=== PATIENT | male | born 1935 | race Caucasian/White ===

== ENCOUNTER 2016-09-24 14:34 | Emergency (ER) | payer OTHER ==
[2016-09-24] MEDS ORDERED: ONDANSETRON 4 MG/2 ML VIAL IVP ONE (16:12)
[2016-09-24] MEDS ORDERED: HYDROmorphONE/DILAUDID 1 MG/ML SYR IVP ONE ×2 (16:12→17:55)
--- NOTE | 2016-09-24 16:13 | EDPHY ---
H & P Time Seen by Provider: 09/24/16 16:05 HPI/ROS: CHIEF COMPLAINT: Left hip pain HISTORY OF PRESENT ILLNESS: patient had a left hip fracture with surgical repair in [facility] in November of last year. He fell in May and since then has had left hip pain and difficulty walking. In fact according to the patient and his daughter he really can't stand or walk for at least the last couple of months. No weakness or numbness in the left foot. Pain is moderate. Much worse with walking or standing. Radiates into the left proximal thigh. Not associated with fever or new trauma since May. REVIEW OF SYSTEMS: Eye: no change in vision ENT: no sore throat Cardiac: no chest pain or syncope Pulmonary: no cough or SOB Abdomen: no vomiting, diarrhea, abdominal pain Musculoskeletal: no back pain Skin: no rash Neuro: no headache Constitutional: no fever : no urinary symptoms A comprehensive 10 point review of systems is otherwise negative aside from elements mentioned in the history of present illness. PAST MEDICAL HISTORY: Negative Social history: Speaks Maltese, history and physical performed interpreted physically in the room. General Appearance: Alert and conversant, cooperative. Eyes: No scleral icterus. ENT, Mouth: Normal mucous membranes. Respiratory: Normal respiratory effort, breath sounds equal, lungs are clear to auscultation. Cardiovascular: Regular rate and rhythm. Gastrointestinal: Abdomen is soft and non tender. Neurological: Alert ,answers questions appropriately per [employer]. Face symmetric, normal movement and sensation in all extremities. Skin: Warm and dry, no rashes. Musculoskeletal: Patient has left hip flexion contracture both at the hip and at the knee. Tender to palpation over the proximal femur. Normal motor sensory and capillary refill in the left foot. Psychiatric: Not agitated. Emergency Department course/MDM: Results discussed with the patient and daughter at 5:15 p.m. with [employer]. X-ray reviewed with Dr. 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 Discussed with patient and daughter; chapin Tejeda and Dr. Chan at [phone] needs transfer to specialty ortho center. Dr. Chan reviewed films in the OR. Discussed with [place] at [phone], Dr. Keene accepts in transfer to ED at [place]. Dr. Cali [phone] accepts in transfer. Discussed with patient and daughter reason for transfer for specialty orthopedic care, revision of failed hip prosthesis, not currently available at [place]. Reason for ambulance transport is not ambulatory. Smoking Status: Never smoked Constitutional: Initial Vital Signs Temperature (C) 36.3 C 09/24/16 14:43 Heart Rate 96 09/24/16 14:43 Respiratory Rate 18 09/24/16 14:43 Blood Pressure 108/63 09/24/16 14:43 O2 Sat (%) 98 09/24/16 14:43 O2 Delivery Mode Room Air Allergies/Adverse Reactions: No Known Allergies Allergy (Unverified 09/24/16 14:48) Home Medications: Medication Instructions Recorded Docusate Sodium [Colace 100 MG (*)] 100 mg PO BID PRN 09/24/16 Methimazole [Tapazole 5MG (*)] 5 mg PO DAILY 09/24/16 Multivitamins [Multivitamin (*)] 1 each PO DAILY 09/24/16 traMADol [Ultram 50 mg (*)] 50 mg PO TID PRN 09/24/16 Medical Decision Making - Diagnostics Imaging Results: Imaging Impressions Pelvis X-Ray 09/24/16 16:11 Impression: 1. 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 2. 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 Femur X-Ray 09/24/16 16:31 Impression: 1. Intact femoral shaft. 2. Suspect loosening of the left hip arthroplasty at the bone cement interface. 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 Imaging: I viewed and interpreted images myself Differential Diagnosis: Differential considered including but not limited to hip contusion, hip fracture , pelvis fracture, dislocation, Consult/Admit Bed Type: [place] [id number] - Data Points Laboratory Results: Laboratory Results 09/24/16 16:30 09/24/16 16:30 09/24/16 09/24/16 16:30 16:30 WBC 9.83 10^3/uL H 10^3/uL (3.80-9.50) RBC 3.52 10^6/uL L 10^6/uL (4.40-6.38) Hgb 10.4 g/dL L g/dL (13.7-17.5) Hct 32.0 % L % (40.0-51.0) MCV 90.9 fL fL (81.5-99.8) MCH 29.5 pg pg (27.9-34.1) MCHC 32.5 g/dL g/dL (32.4-36.7) RDW 16.6 % H % (11.5-15.2) Plt Count 443 10^3/uL H 10^3/uL (150-400) MPV 10.5 fL fL (8.7-11.7) Neut % (Auto) 66.2 % % (39.3-74.2) Lymph % (Auto) 22.9 % % (15.0-45.0) [place] % (Auto) 8.4 % % (4.5-13.0) Eos % (Auto) 1.5 % % (0.6-7.6) Baso % (Auto) 0.5 % % (0.3-1.7) Nucleat RBC Rel Count 0.0 % % (0.0-0.2) Absolute Neuts (auto) 6.50 10^3/uL 10^3/uL (1.70-6.50) Absolute Lymphs (auto) 2.25 10^3/uL 10^3/uL (1.00-3.00) Absolute Monos (auto) 0.83 10^3/uL H 10^3/uL (0.30-0.80) Absolute Eos (auto) 0.15 10^3/uL 10^3/uL (0.03-0.40) Absolute Basos (auto) 0.05 10^3/uL 10^3/uL (0.02-0.10) Absolute Nucleated RBC 0.00 10^3/uL 10^3/uL (0-0.01) Immature Gran % 0.5 % % (0.0-1.1) Immature Gran # 0.05 10^3/uL 10^3/uL (0.00-0.10) Sodium 136 mEq/L mEq/L (134-144) Potassium 6.2 mEq/L H mEq/L (3.5-5.2) Chloride 103 mEq/L mEq/L (97-110) Carbon Dioxide 24 mEq/l mEq/l (22-31) Anion Gap 9 mEq/L mEq/L (8-16) BUN 25 mg/dL H mg/dL (7-23) Creatinine 0.8 mg/dL mg/dL (0.7-1.3) Estimated GFR > 60 Glucose 97 mg/dL mg/dL (70-100) Calcium 8.8 mg/dL mg/dL (8.5-10.4) Specimen Hemolysis 181 Medications Given: Discontinued Medications Hydromorphone HCl (Dilaudid) 0.5 mg IVP EDNOW ONE Stop: 09/24/16 16:13 Last Admin: 09/24/16 16:30 Dose: 0.5 mg Hydromorphone HCl (Dilaudid) 0.5 mg IVP EDNOW ONE Stop: 09/24/16 17:56 Last Admin: 09/24/16 18:00 Dose: 0.5 mg Ondansetron HCl (Zofran) 4 mg IVP EDNOW ONE Stop: 09/24/16 16:13 Last Admin: 09/24/16 16:30 Dose: 4 mg Departure - Departure Disposition: [facility] Clinical Impression: Prosthetic hip implant failure Qualifiers: Encounter type: initial encounter Qualified Code(s): T84.018A - Broken internal joint prosthesis, other site, initial encounter Condition: Good Referrals: Joann Fajardo PA [Primary Care Provider] - As per Instructions
[2016-09-24 16:44] LABS: % IMMATURE GRANULYOCYTES 0.5 % (0.0-1.1); ABSOLUTE IMMATURE GRANULOCYTES 0.05 10^3/uL (0.00-0.10); ADD DIFF? NO; ADD MORPH? NO; ADD SCAN? NO; ATYPICAL LYMPHOCYTE FLAG 0 (0-99); FRAGMENT RBC FLAG 50 (0-99); HEMOGLOBIN 10.4 g/dL (13.7-17.5); LEFT SHIFT FLG 0 (0-99); LIPEMIA HEMOLYSIS FLAG 80 (0-99); MEAN CELL HEMOGLOBIN 29.5 pg (27.9-34.1); MEAN CELL HEMOGLOBIN CONCENTR. 32.5 g/dL (32.4-36.7); MEAN CELL VOLUME 90.9 fL (81.5-99.8); MEAN PLATELET VOLUME 10.5 fL (8.7-11.7); PLATELET CLUMPS FLAG 20 (0-99); PLATELET COUNT 443 10^3/uL (150-400); RED BLOOD CELL COUNT 3.52 10^6/uL (4.40-6.38); RED CELL DISTRIBUTION WIDTH 16.6 % (11.5-15.2)
[2016-09-24 16:55] LABS: ANION GAP 9 mEq/L (8-16); CALCIUM 8.8 mg/dL (8.5-10.4); CARBON DIOXIDE 24 mEq/l (22-31); CHLORIDE 103 mEq/L (97-110); CREATININE 0.8 mg/dL (0.7-1.3); GLOMERULAR FILTRATION RATE > 60; GLUCOSE 97 mg/dL (70-100); POTASSIUM 6.2 mEq/L (3.5-5.2); SODIUM 136 mEq/L (134-144); SPECIMEN HEMOLYSIS 181
[2016-09-24 18:46] VITALS: BP 105/55; PULSE 76; RESP 20; TEMP 98.2; O2SAT 97
== END 2016-09-24 18:50 | disposition short-term general hospital (02) ==
DX: T84.011A Broken internal left hip prosthesis, initial encounter (principal); Y82.8 Other medical devices associated with adverse incidents
CPT/HCPCS: 96374; J1170; J2405

== ENCOUNTER 2016-09-26 12:39 | Emergency (ER) | payer OTHER ==
--- NOTE | 2016-09-26 13:08 | EDPHY ---
H & P Stated Complaint: fell out of bed last night/l hip pain(seen recently for hip prob here and u Time Seen by Provider: 09/26/16 13:01 HPI/ROS: CHIEF COMPLAINT: Left hip pain after rolling out of bed HISTORY OF PRESENT ILLNESS: 80-year-old male history of left hip fracture with surgical repair in [facility] in November 2015. He fell in May and since has had left hip pain difficulty walking. Per patient and daughter he can ' t stand or walk for at least the past few months since falling in May. He was seen in the emergency department a few days ago for complaints of ongoing left hip pain and subsequently transferred to [facility] at which point he was discharged with plan to follow up with outpatient orthopedics an outpatient PTD. Today, He arrives via private vehicle with family members who carried him to the car. They states that he rolled out of bed onto his left hip this morning. This was not a syncopal episode, this was a mechanical incident. He is unable to bear weight. No head injury. No nausea or vomiting. No altered mentation. He has reproducible pain with movement of the left lower extremity. REVIEW OF SYSTEMS: A ten point review of systems was performed and is negative with the exception of the items mentioned in the HPI PAST MEDICAL & SURGICAL HISTORY: left hip arthroplasty November 2015 in [place] SOCIAL HISTORY: lives with family PHYSICAL EXAM (Prior to examination, patient consented to physical exam, hands were washed and my usual and customary physical exam procedures followed) 1) GENERAL: Well-developed, well-nourished, alert and oriented. Appears to be in no acute distress. 2) HEAD: Normocephalic, atraumatic 3) HEENT: Pupils equal, round, reactive to light bilaterally. Sclera anicteric. Nasopharynx, oropharynx, clear, no lesions. Ears bilaterally with normal tympanic membranes. No raccoon eyes no Goncalves sign. 4) NECK: Full range of motion, no meningeal signs. 5) LUNGS: Clear auscultation bilaterally, no wheezes, no rhonchi, no retractions. 6) HEART: Regular rate and rhythm, no murmur, no heave, no gallop. 7) ABDOMEN: No guarding, no rebound, no focal tenderness, negative McBurney's, negative Lozano's, negative Rovsing's, negative peritoneal sign, 8) MUSCULOSKELETAL: Left hip flexion contracture both at the hip and at the knee. The patient is tender to palpation left greater trochanteric region. unable call to determine leg length or rotation as patient is keeping his left thigh flex unwilling to move secondary to pain. Distal DP PT pulses present and brisk with normal color normal temperature. Intact skin. 9) BACK: No CVA tenderness. 10) SKIN: No rash, no petechiae. 11) Psychiatric: Patient is oriented X 3, there is no agitation. DIFFERENTIAL DIAGNOSIS: in no particular include but limited to fracture, dislocation, sprain - Personal History Current Tetanus/Diphtheria Vaccine: Unsure - Medical/Surgical History Hx Asthma: No Hx Chronic Respiratory Disease: No Hx Diabetes: No Hx Cardiac Disease: Yes Hx Renal Disease: No Hx Cirrhosis: No Hx Alcoholism: No Hx HIV/AIDS: No Hx Splenectomy or Spleen Trauma: No Other PMH: PMH: "cardiac problems causing feet swelling". PSH: hip/knee surg 2016 - Social History Smoking Status: Never smoked Constitutional: Initial Vital Signs Temperature (C) 37 C 09/26/16 12:46 Heart Rate 124 H 09/26/16 12:46 Respiratory Rate 22 H 09/26/16 12:46 Blood Pressure 99/80 L 09/26/16 12:46 O2 Sat (%) 92 09/26/16 12:46 O2 Delivery Mode Room Air Allergies/Adverse Reactions: No Known Allergies Allergy (Verified 09/26/16 12:40) Home Medications: Medication Instructions Recorded Docusate Sodium [Colace 100 MG (*)] 100 mg PO BID PRN 09/24/16 Methimazole [Tapazole 5MG (*)] 5 mg PO DAILY 09/24/16 Multivitamins [Multivitamin (*)] 1 each PO DAILY 09/24/16 traMADol [Ultram 50 mg (*)] 50 mg PO TID PRN 09/24/16 Medical Decision Making - Diagnostics Imaging Results: Imaging Impressions Hip X-Ray 09/26/16 13:02 Impression: There is no acute abnormality, or substantial change from 2016. Please see the above comments. Case was discussed with Rosendo Brady PA-C at 2:30 PM on 09/26/2016. Images reviewed by myself ED Course/Re-evaluation: This patient was re-evaluated with serial exams and the case discussed with secondary supervising physician Dr. Narinder Alex. I had a lengthy discussion with the family, the patient and the generation technologist. We have discussed options. He has been discharged from [facility] yesterday (Tuesday) and was recommend that he call the orthopedic clinic tomorrow to set up an outpatient appointment and to arrange physical therapy. There is no evidence of acute fracture or dislocation on x-ray interpreted by radiologist. I offered descended patient back to [facility] although per the family there were no plans for emergent surgery. They declined thisI offered admission to the hospital for PT OT, pain control and possible transfer to rehabilitation facility however they declined this. they declined this. They state they feel comfortable managing his pain at home, they feel comfortable taking care of him and setting up follow-up appointments. They have sufficient supply of analgesia prescribed [facility] and they have a list of next steps for patient. - Data Points Laboratory Results: Laboratory Results 09/26/16 13:04 09/26/16 13:04 09/26/16 09/26/16 09/26/16 13:04 13:04 13:04 WBC 9.38 10^3/uL 10^3/uL (3.80-9.50) RBC 3.80 10^6/uL L 10^6/uL (4.40-6.38) Hgb 11.3 g/dL L g/dL (13.7-17.5) Hct 34.2 % L % (40.0-51.0) MCV 90.0 fL fL (81.5-99.8) MCH 29.7 pg pg (27.9-34.1) MCHC 33.0 g/dL g/dL (32.4-36.7) RDW 16.1 % H % (11.5-15.2) Plt Count 440 10^3/uL H 10^3/uL (150-400) MPV 9.7 fL fL (8.7-11.7) Neut % (Auto) 75.4 % H % (39.3-74.2) Lymph % (Auto) 15.0 % % (15.0-45.0) [place] % (Auto) 7.9 % % (4.5-13.0) Eos % (Auto) 0.9 % % (0.6-7.6) Baso % (Auto) 0.4 % % (0.3-1.7) Nucleat RBC Rel Count 0.0 % % (0.0-0.2) Absolute Neuts (auto) 7.07 10^3/uL H 10^3/uL (1.70-6.50) Absolute Lymphs (auto) 1.41 10^3/uL 10^3/uL (1.00-3.00) Absolute Monos (auto) 0.74 10^3/uL 10^3/uL (0.30-0.80) Absolute Eos (auto) 0.08 10^3/uL 10^3/uL (0.03-0.40) Absolute Basos (auto) 0.04 10^3/uL 10^3/uL (0.02-0.10) Absolute Nucleated RBC 0.00 10^3/uL 10^3/uL (0-0.01) Immature Gran % 0.4 % % (0.0-1.1) Immature Gran # 0.04 10^3/uL 10^3/uL (0.00-0.10) PT 14.0 SEC SEC (12.0-15.0) INR 1.09 (0.83-1.16) APTT 33.3 SEC SEC (23.0-38.0) Sodium 136 mEq/L mEq/L (134-144) Potassium 4.4 mEq/L mEq/L (3.5-5.2) Chloride 100 mEq/L mEq/L (97-110) Carbon Dioxide 25 mEq/l mEq/l (22-31) Anion Gap 11 mEq/L mEq/L (8-16) BUN 18 mg/dL mg/dL (7-23) Creatinine 0.8 mg/dL mg/dL (0.7-1.3) Estimated GFR > 60 Glucose 115 mg/dL H mg/dL (70-100) Calcium 9.2 mg/dL mg/dL (8.5-10.4) Medications Given: Discontinued Medications Ketorolac Tromethamine (Toradol) 15 mg IVP EDNOW ONE Stop: 09/26/16 13:16 Last Admin: 05/14/17 13:24 Dose: 15 mg Morphine Sulfate (Morphine) 4 mg IVP EDNOW ONE Stop: 09/26/16 13:06 Last Admin: 09/26/16 13:23 Dose: 4 mg Departure - Departure Disposition: Home, Routine, Self-Care Clinical Impression: Prosthetic hip implant failure Qualifiers: Encounter type: subsequent encounter Qualified Code(s): T84.018D - Broken internal joint prosthesis, other site, subsequent encounter; Z96.649 - Presence of unspecified artificial hip joint Condition: Good Instructions: Hip Fracture (ED) Additional Instructions: We have offered admission which you have declined. If you feel you are unable to take care of your father return to the ER or go to [facility] Emergency Department. Call [facility] Orthopedic Clinic tomorrow ( Tuesday) to set up an appointment. Take your pain medication as directed by the [facility] Orthopedic doctors. Referrals: [facility] [Other] - As per Instructions
[2016-09-26 13:12] LABS: % IMMATURE GRANULYOCYTES 0.4 % (0.0-1.1); ABSOLUTE IMMATURE GRANULOCYTES 0.04 10^3/uL (0.00-0.10); ADD DIFF? NO; ADD MORPH? NO; ADD SCAN? NO; ATYPICAL LYMPHOCYTE FLAG 0 (0-99); FRAGMENT RBC FLAG 0 (0-99); HEMATOCRIT 34.2 % (40.0-51.0); HEMOGLOBIN 11.3 g/dL (13.7-17.5); LEFT SHIFT FLG 0 (0-99); LIPEMIA HEMOLYSIS FLAG 80 (0-99); MEAN CELL HEMOGLOBIN 29.7 pg (27.9-34.1); MEAN PLATELET VOLUME 9.7 fL (8.7-11.7); PLATELET CLUMPS FLAG 0 (0-99); PLATELET COUNT 440 10^3/uL (150-400); RED CELL DISTRIBUTION WIDTH 16.1 % (11.5-15.2)
[2016-09-26] MEDS ORDERED: KETOROLAC 30 MG/1 ML SDV IVP ONE (13:15)
[2016-09-26] MEDS ORDERED: KETOROLAC 15 MG/1 ML SDV ONE (13:15)
[2016-09-26 13:24] LABS: INR 1.09 (0.83-1.16)
[2016-09-26 13:25] LABS: ANION GAP 11 mEq/L (8-16); APTT 33.3 SEC (23.0-38.0); CALCIUM 9.2 mg/dL (8.5-10.4); CARBON DIOXIDE 25 mEq/l (22-31); CHLORIDE 100 mEq/L (97-110); CREATININE 0.8 mg/dL (0.7-1.3); GLOMERULAR FILTRATION RATE > 60; GLUCOSE 115 mg/dL (70-100); POTASSIUM 4.4 mEq/L (3.5-5.2); SODIUM 136 mEq/L (134-144)
[2016-09-26 15:25] VITALS: BP 120/77; PULSE 70; RESP 14; TEMP 98.4; O2SAT 94
== END 2016-09-26 15:24 | disposition home or self-care (01) ==
DX: T84.011D Broken internal left hip prosthesis, subsequent encounter (principal); W06.XXXD Fall from bed, subsequent encounter; Y79.2 Prosthetic and other implants, materials and accessory orthopedic devices associated with adverse incidents
CPT/HCPCS: 96374; J1885

== ENCOUNTER 2017-08-06 15:11 | Observation (INO) | payer SELFPAY ==
--- NOTE | 2017-08-06 15:31 | CPEKG ---
Heart Rate: 84 RR Interval: 714 P-R Interval: 156 QRSD Interval: 96 QT Interval: 376 QTC Interval: 445 P [place]: 39 QRS [place]: -13 T Wave [place]: 45 EKG Severity - OTHERWISE NORMAL ECG - EKG Impression: SINUS RHYTHM EKG Impression: LOW VOLTAGE IN FRONTAL LEADS Electronically Signed By: Jonathan Rodriguez 06-Aug-2017 15:41:52
[2017-08-06] MEDS ORDERED: ASPIRIN 81 MG CHEWABLE TAB PO ONE (15:37)
[2017-08-06] MEDS ORDERED: ASPIRIN 81 MG CHEWABLE TAB ONE (15:37)
[2017-08-06] MEDS ORDERED: NS 500 ML IV ONE (15:37)
--- NOTE | 2017-08-06 15:40 | EDPHY ---
H & P Stated Complaint: left chestwall pain. with inspiration and palpation, denies any trauma Time Seen by Provider: 08/06/17 15:26 HPI/ROS: CHIEF COMPLAINT: Chest pain HISTORY OF PRESENT ILLNESS: The patient is an 81-year-old man from [place] who comes to the emergency department with his family complaining of left chest pain that is tender to palpation. He states that he woke up with it at 5 o' clock this morning. He has had pain ever since. He denies any trauma. He denies fevers or recent illness. He states that he felt very well yesterday. He states that he had a heart attack several decades ago in [place]. Family states that he did not have any interventions at the time but now has a enlarged heart. They are not sure if he has been diagnosed with heart failure. They have been told that he has a weak heart. He he denies shortness of breath but does have pain with deep inspiration. No leg pain or swelling. He denies any pulmonary comorbidities. REVIEW OF SYSTEMS: Constitutional: denies: chills, fever, recent illness, recent injury EENTM: denies: blurred vision, double vision, nose congestion Respiratory: denies: cough, shortness of breath Cardiac: see HPI Gastrointestinal/Abdominal: denies: abdominal pain, diarrhea, nausea, vomiting, blood streaked stools Genitourinary: denies: dysuria, frequency, hematuria, pain Musculoskeletal: denies: joint pain, muscle pain Skin: denies: lesions, rash, jaundice, bruising Neurological: denies: headache, numbness, paresthesia, tingling, dizziness, weakness Hematologic/Lymphatic: denies: blood clots, easy bleeding, easy bruising Immunologic/allergic: denies: HIV/AIDS, transplant EXAM: GENERAL: Well-appearing, well-nourished and in no acute distress. HEAD: Atraumatic, normocephalic. EYES: Pupils equal round and reactive to light, extraocular movements intact, sclera anicteric, conjunctiva are normal. ENT: TMs normal, nares patent, oropharynx clear without exudates. Moist mucous membranes. NECK: Normal range of motion, supple without lymphadenopathy or JVD. LUNGS: Breath sounds clear to auscultation bilaterally and equal. No wheezes rales or rhonchi. HEART: Tender to palpation to left lateral rib region. Regular rate and rhythm without murmurs, rubs or gallops. ABDOMEN: Soft, nontender, normoactive bowel sounds. No guarding, no rebound. No masses appreciated. BACK: No CVA tenderness, no spinal tenderness, step-offs or deformities EXTREMITIES: Normal range of motion, no pitting or edema. No clubbing or cyanosis. NEUROLOGICAL: Cranial nerves II through XII grossly intact. Normal speech, normal gait. 5/5 strength, normal movement in all extremities, normal sensation PSYCH: Normal mood, normal affect. SKIN: Warm, dry, normal turgor, no visible rashes or lesions. Source: Patient Exam Limitations: No limitations - Personal History Current Tetanus Diphtheria and Acellular Pertussis (TDAP): Unsure - Medical/Surgical History Hx Asthma: No Hx Chronic Respiratory Disease: No Hx Diabetes: No Hx Cardiac Disease: Yes Hx Renal Disease: No Hx Cirrhosis: No Hx Alcoholism: No Hx HIV/AIDS: No Hx Splenectomy or Spleen Trauma: No Other PMH: PMH: "cardiac problems causing feet swelling". PSH: hip/knee surg 2016 - Family History Significant Family History: No pertinent family hx - Social History Smoking Status: Never smoked Alcohol Use: Sober Drug Use: None Constitutional: Initial Vital Signs Temperature (C) 36.9 C 08/06/17 15:17 Heart Rate 95 08/06/17 15:17 Respiratory Rate 16 08/06/17 15:17 Blood Pressure 123/70 H 08/06/17 15:17 O2 Sat (%) 98 08/06/17 15:17 O2 Delivery Mode Room Air Allergies/Adverse Reactions: No Known Allergies Allergy (Verified 09/26/16 12:40) Home Medications: Medication Instructions Recorded Methimazole [Tapazole 5MG (*)] 2.5 mg PO Q2D 09/24/16 Multivitamins [Multivitamin (*)] 1 tab PO DAILY 09/24/16 Calcium Carb W/Vit D [Calcium Carb 1,000 mg PO HS 08/06/17 W/Vit D 500/200 (*)] Finasteride [Proscar 5 MG (*)] 5 mg PO HS 08/06/17 Gabapentin [Neurontin 100 MG (*)] 200 mg PO BID 08/06/17 Lidocaine [Lidoderm] 1 patch TP Q2D 08/06/17 Tamsulosin HCl [Flomax 0.4 MG (*)] 0.4 mg PO HS 08/06/17 Medical Decision Making - Diagnostics EKG Interpretation: An EKG obtained and was read and documented in trace view. Please see trace view for full reading and report. Sinus rhythm, no acute ischemic changes Imaging Results: Imaging Impressions Chest X-Ray 08/06/17 16:02 Impression: 1. Left upper lobe nodule versus asymmetric calcification anterior left first rib. 2. Favor left basilar atelectasis rather than pneumonia. 3. No failure. Findings discussed with Emergency Department physician, Jonathan Rodriguez on 2017 at 1703 hours. Chest/Thorax CTA 08/06/17 16:27 Impression: 1. Acute small to moderate thrombopulmonary embolic disease. 2. Minimal bibasilar atelectasis, worse right than left. 3. No pulmonary nodule or lymphadenopathy. Finding on the radiograph corresponds to asymmetric benign sclerosis at the anterior left 1st rib sternal junction. Findings discussed with emergency department physician, Jonathan Rodriguez MD on August 06, 2017 at 6:18 p.m. Imaging: Discussed imaging studies w/ call center representative Radiologist Procedures: I performed a bedside ultrasound of his heart. It does appears enlarged. No pericardial effusion. ED Course/Re-evaluation: 6:45 p.m. we discussed the patient's CT results. They are not surprised. They now tell me that he suffered a left hip fracture in [place] 2 years ago that was replaced. He was then seen here a year ago with hip pain and it was thought that his prosthesis was slightly loose. [facility] they elected to treat him non operatively which the family thinks is because of insurance reasons. 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 His daughter states that last fall his filter was removed and his anticoagulants were discontinued. I discussed the case with Dr. Maurilio jensen who will admit to the medical service. He requested Lovenox. Differential Diagnosis: Partial list of the Differential diagnosis considered include but were not limited to; acute coronary disease, CHF, pericardial effusion, PE and although unlikely based on the history and physical exam, I also considered pneumonia, pneumothorax, aneurysm, dissection. Care Turn Over: Critical care time spent by me, Dr. Rodriguez exclusive with this patient was 35 minutes, exclusive of the PA time exclusive of procedures. The organ system that was at risk was pulmonary and cardiovascular and I gave IV fluids, pain management, diagnostics and admission to prevent worsening of the patient's condition - Data Points Laboratory Results: Laboratory Results 08/06/17 15:28 08/06/17 15:28 08/06/17 08/06/17 08/06/17 15:28 15:28 15:28 WBC 6.45 10^3/uL 10^3/uL (3.80-9.50) RBC 4.29 10^6/uL L 10^6/uL (4.40-6.38) Hgb 11.6 g/dL L g/dL (13.7-17.5) Hct 36.1 % L % (40.0-51.0) MCV 84.1 fL fL (81.5-99.8) MCH 27.0 pg L pg (27.9-34.1) MCHC 32.1 g/dL L g/dL (32.4-36.7) RDW 19.9 % H % (11.5-15.2) Plt Count 297 10^3/uL 10^3/uL (150-400) MPV 9.5 fL fL (8.7-11.7) Neut % (Auto) 56.8 % % (39.3-74.2) Lymph % (Auto) 29.9 % % (15.0-45.0) [place] % (Auto) 9.9 % % (4.5-13.0) Eos % (Auto) 2.5 % % (0.6-7.6) Baso % (Auto) 0.6 % % (0.3-1.7) Nucleat RBC Rel Count 0.0 % % (0.0-0.2) Absolute Neuts (auto) 3.66 10^3/uL 10^3/uL (1.70-6.50) Absolute Lymphs (auto) 1.93 10^3/uL 10^3/uL (1.00-3.00) Absolute Monos (auto) 0.64 10^3/uL 10^3/uL (0.30-0.80) Absolute Eos (auto) 0.16 10^3/uL 10^3/uL (0.03-0.40) Absolute Basos (auto) 0.04 10^3/uL 10^3/uL (0.02-0.10) Absolute Nucleated RBC 0.00 10^3/uL 10^3/uL (0-0.01) Immature Gran % 0.3 % % (0.0-1.1) Immature Gran # 0.02 10^3/uL 10^3/uL (0.00-0.10) PT 14.1 SEC SEC (12.0-15.0) INR 1.07 (0.83-1.16) APTT 32.8 SEC SEC (23.0-38.0) D-Dimer 2.80 ug/mLFEU H ug/mLFEU (0.00-0.50) Sodium 146 mEq/L H mEq/L (135-145) Potassium 4.7 mEq/L mEq/L (3.5-5.2) Chloride 106 mEq/L mEq/L (97-110) Carbon Dioxide 24 mEq/l mEq/l (22-31) Anion Gap 16 mEq/L mEq/L (8-16) BUN 17 mg/dL mg/dL (7-23) Creatinine 0.9 mg/dL mg/dL (0.7-1.3) Estimated GFR > 60 Glucose 93 mg/dL mg/dL (70-100) Calcium 9.1 mg/dL mg/dL (8.5-10.4) Total Bilirubin 0.6 mg/dL mg/dL (0.1-1.4) Conjugated Bilirubin 0.3 mg/dL mg/dL (0.0-0.5) Unconjugated Bilirubin 0.3 mg/dL mg/dL (0.0-1.1) AST 15 IU/L L IU/L (17-59) ALT 24 IU/L IU/L (21-72) Alkaline Phosphatase 105 IU/L IU/L (38-126) Troponin I < 0.012 ng/mL ng/mL (0.000-0.034) NT-Pro-B Natriuret Pep 217 pg/mL pg/mL (0-450) Total Protein 8.5 g/dL H g/dL (6.3-8.2) Albumin 3.9 g/dL g/dL (3.5-5.0) Lipase 64 IU/L IU/L (23-300) Medications Given: Enoxaparin Sodium (Lovenox) 60 mg SC BID CAR Stop: 02/02/18 20:59 Last Admin: 08/06/17 18:54 Dose: 60 mg Discontinued Medications Aspirin (Aspirin) 324 mg PO EDNOW ONE Stop: 08/06/17 15:38 Last Admin: 08/06/17 15:39 Dose: 324 mg Sodium Chloride (Ns) 500 mls @ 1,000 mls/hr IV EDNOW ONE PRN Reason: Protocol Stop: 08/06/17 16:06 Last Admin: 08/06/17 15:46 Dose: 500 mls Morphine Sulfate (Morphine) 4 mg IVP EDNOW ONE Stop: 08/06/17 15:41 Last Admin: 08/06/17 15:49 Dose: 4 mg Departure - Departure Disposition: [facility] Acute Clinical Impression: Pulmonary embolism Qualifiers: Pulmonary embolism type: other Chronicity: acute Acute cor pulmonale presence: without acute cor pulmonale Qualified Code(s): I26.99 - Other pulmonary embolism without acute cor pulmonale Condition: Critical
[2017-08-06 15:48] LABS: PLATELET COUNT 297 10^3/uL (150-400)
[2017-08-06 15:55] LABS: INR 1.07 (0.83-1.16); PROTIME(PATIENT) 14.1 SEC (12.0-15.0)
[2017-08-06] MEDS ORDERED: IOPAMIDOL (ISOVUE 370) 100 ML BTL IV ONE (17:15)
[2017-08-06] MEDS: ENOXAPARIN 60 MG/0.6 ML SYR SC SCH (18:54)
[2017-08-06] MEDS ORDERED: ONDANSETRON DISINTEGRATING 4 MG TAB PO PRN (19:06)
[2017-08-06] MEDS ORDERED: oxyCODONE IR 5 MG TAB PO PRN (19:06)
[2017-08-06] MEDS ORDERED: ONDANSETRON 4 MG/2 ML VIAL IVP PRN (19:06)
[2017-08-06] MEDS ORDERED: TAMSULOSIN HCL 0.4 MG CAP PO SCH (21:00)
[2017-08-06] MEDS ORDERED: FINASTERIDE 5 MG TAB PO SCH (21:00)
[2017-08-06] MEDS ORDERED: WARFARIN SODIUM 5 MG TAB PO SCH (21:00)
[2017-08-06] MEDS ORDERED: CALCIUM CARB W/VIT D 500 MG TAB PO SCH (21:00)
--- NOTE | 2017-08-06 21:03 | PDGENHP ---
History and Physical - Chief Complaint Acute chest pain - History of Present Illness Primary care provider: [facility] HPI: 81-year-old male presenting with acute chest pain located in the left upper chest with onset of symptoms at 5:00 a.m. On the day of presentation, and persistent duration thereafter. The patient characterized the pain as "inflammatory" with associated shortness of breath and lower extremity edema. He reports that the pain was improved after returning from the CT scanner. The pain was exacerbated earlier today by deep inspiration. He otherwise denies any infectious symptoms. His chronic left hip pain is treated and alleviated with Lidoderm patch. Of note, the patient has been chronically chair bound since 2016 when he experienced dislocation of his previous left hip repair. He was seen at [facility], and they referred him to an outpatient orthopedic evaluation that offered the patient surgery but it was prohibitive secondary to financial cost. Given that the patient was not going to pursue surgery secondary to cost, [facility] recommended that he pursue outpatient hospice care. The patient has not established with hospice, and he has remained chronically chair bound thereafter. He had his IVC filter removed in February of 2017 and his anticoagulation was stopped at that time as well. History Information - Allergies/Home Medication List Allergies/Adverse Reactions: No Known Allergies Allergy (Verified 09/26/16 12:40) Home Medications: Methimazole [Tapazole 5MG (*)] 2.5 mg PO Q2D 09/24/16 [Last Taken 08/06/17 08:00 ] Multivitamins [Multivitamin (*)] 1 tab PO DAILY 09/24/16 [Last Taken 08/06/17 10 :00] Calcium Carb W/Vit D [Calcium Carb W/Vit D 500/200 (*)] 1,000 mg PO HS 08/06/17 [Last Taken 08/05/17 22:00] Finasteride [Proscar 5 MG (*)] 5 mg PO HS 08/06/17 [Last Taken 08/05/17 21:00] Gabapentin [Neurontin 100 MG (*)] 200 mg PO BID 08/06/17 [Last Taken 08/06/17 11 :00] Lidocaine [Lidoderm] 1 patch TP Q2D 08/06/17 [Last Taken 08/06/17 13:00] Tamsulosin HCl [Flomax 0.4 MG (*)] 0.4 mg PO HS 08/06/17 [Last Taken 08/05/17 21 :00] I have personally reviewed and updated: family history, medical history, social history, surgical history - Past Medical History coronary artery disease (With reported myocardial infarction a couple decades ago and subsequent cardiomyopathy, unclear type), DVT (Status post hip and knee repair surgeries, previously on Coumadin and with IVC filter until February 2017 , when the filter was removed and anticoagulation was stopped) Additional medical history: Mechanical fall in 2017 with subsequent loosening of his prosthesis in his left hip - Surgical History Additional surgical history: Left hip and knee surgery in 2015. IVC filter placement following that surgery, removal 2016 - Family History Additional family history: No venous thromboembolism - Social History Smoking Status: Never smoked Alcohol Use: Sober Drug Use: None Additional social history: Currently cared for by his family, remains chair bound during the vast majority of the day Review of Systems Review of Systems: ROS: 10pt was reviewed & negative except for what was stated in HPI & below Cardiac: Reports: chest pain, edema Respiratory: Reports: shortness of breath Muscolosketal: Reports: other (Left hip pain) Physical Exam Physical Exam: Temp Pulse Resp BP Pulse Ox 36.8 C 79 16 105/60 92 08/06/17 20:00 08/06/17 20:00 08/06/17 20:00 08/06/17 20:00 08/06/17 20:00 Constitutional: no apparent distress, not in pain, chronically ill appearing, No uncomfortable Eyes: PERRL, anicteric sclera, EOMI Ears, Nose, Mouth, Throat: moist mucous membranes, hearing normal, ears appear normal, no oral mucosal ulcers Cardiovascular: regular rate and rhythym, no murmur, rub, or gallop, edema (1+ bilateral lower extremity), No irregularly irregular, No tachycardia Respiratory: inspiratory crackles (Right base), No reduced air movement, No expiratory wheeze, No bronchial breath sounds, No respiratory distress, No rhonchi Gastrointestinal: normoactive bowel sounds, soft, non-tender abdomen, no palpable masses, No distension Skin: No abrasion (Left hip), No rash Musculoskeletal: other (Joint dislocation and internal rotation of left femur in left hip with shortening of the limb) Neurologic: AAOx3, sensation intact bilaterally, weakness (3/5 motor strength left lower extremity), No facial droop Psychiatric: not anxious, not encephalopathic, flat affect, other ( Concentration 7/7, naming 3/3), No agitated Lab Data & Imaging Review 08/06/17 15:28 08/06/17 15: WBC 6.45 10^3/uL (3.80-9.50) 08/06/17 15: RBC 4.29 10^6/uL (4.40-6.38) L 08/06/17 15: Hgb 11.6 g/dL (13.7-17.5) L 08/06/17 15: Hct 36.1 % (40.0-51.0) L 08/06/17 15: MCV 84.1 fL (81.5-99.8) 08/06/17: MCH 27.0 pg (27.9-34.1) L 08/06/17: MCHC 32.1 g/dL (32.4-36.7) L 08/06/17: RDW 19.9 % (11.5-15.2) H 08/06/17 15: Plt Count 297 10^3/uL (150-400) 08/06/17 15: MPV 9.5 fL (8.7-11.7) 08/06/17 15: Neut % (Auto) 56.8 % (39.3-74.2) 08/06/17 15: Lymph % (Auto) 29.9 % (15.0-45.0) 08/06/17: [place] % (Auto) 9.9 % (4.5-13.0) 08/06/17 15: Eos % (Auto) 2.5 % (0.6-7.6) 08/06/17 15: Baso % (Auto) 0.6 % (0.3-1.7) 08/06/17: Nucleat RBC Rel Count 0.0 % (0.0-0.2) 08/06/17 15: Absolute Neuts (auto) 3.66 10^3/uL (1.70-6.50) 08/06/17 15: Absolute Lymphs (auto) 1.93 10^3/uL (1.00-3.00) 08/06/17 15:28 Absolute Monos (auto) 0.64 10^3/uL (0.30-0.80) 08/06/17 15:28 Absolute Eos (auto) 0.16 10^3/uL (0.03-0.40) 08/06/17 15:28 Absolute Basos (auto) 0.04 10^3/uL (0.02-0.10) 08/06/17 15: Absolute Nucleated RBC 0.00 10^3/uL (0-0.01) 08/06/17 15: Immature Gran % 0.3 % (0.0-1.1) 08/06/17 15: Immature Gran # 0.02 10^3/uL (0.00-0.10) 08/06/17 15: PT 14.1 SEC (12.0-15.0) 08/06/17 15:28 INR 1.07 (0.83-1.16) 08/06/17 15:28 APTT 32.8 SEC (23.0-38.0) 08/06/17 15:28 D-Dimer 2.80 ug/mLFEU (0.00-0.50) H 08/06/17 15:28 Sodium 146 mEq/L (135-145) H 08/06/17 15:28 Potassium 4.7 mEq/L (3.5-5.2) 08/06/17 15:28 Chloride 106 mEq/L (97-110) 08/06/17 15: Carbon Dioxide 24 mEq/l (22-31) 08/06/17 15:28 Anion Gap 16 mEq/L (8-16) 08/06/17 15:28 BUN 17 mg/dL (7-23) 08/06/17 15:28 Creatinine 0.9 mg/dL (0.7-1.3) 08/06/17 15:28 Estimated GFR > 60 08/06/17 15:28 Glucose 93 mg/dL (70-100) 08/06/17 15:28 Calcium 9.1 mg/dL (8.5-10.4) 08/06/17 15:28 Total Bilirubin 0.6 mg/dL (0.1-1.4) 08/06/17 15:28 Conjugated Bilirubin 0.3 mg/dL (0.0-0.5) 08/06/17 15:28 Unconjugated Bilirubin 0.3 mg/dL (0.0-1.1) 08/06/17 15:28 AST 15 IU/L (17-59) L 08/06/17 15:28 ALT 24 IU/L (21-72) 08/06/17 15:28 Alkaline Phosphatase 105 IU/L (38-126) 08/06/17 15: Troponin I < 0.012 ng/mL (0.000-0.034) 08/06/17 15: NT-Pro-B Natriuret Pep 217 pg/mL (0-450) 08/06/17 15: Total Protein 8.5 g/dL (6.3-8.2) H 08/06/17: Albumin 3.9 g/dL (3.5-5.0) 08/06/17 15: Lipase 64 IU/L (23-300) 08/06/17 15:28 Visualized and Interpreted EKG results: Yes EKG Interpretation: Positive for: other (Q-wave in lead 3 and AVF) Assessment & Plan Assessment: 81-year-old male presents with acute pulmonary emboli in the setting of chronic immobility and previous deep venous thrombosis Plan: 1. Acute pulmonary emboli. Acute, new problem this provider, further workup indicated. Most likely secondary to distal embolization of deep venous thrombosis in the setting of chronic immobility with previous history of DVT, previous history of IVC filter placement, previous history of systemic anticoagulation, with the IVC filter and the anticoagulation both discontinued in February of 2017 -given the patient had previously been on Coumadin which had been successfully managed through the [facility], I would recommend we reinitiate him on Coumadin and bridge with Lovenox therapy, 1st dose of Coumadin this evening -get baseline INR tomorrow, then order outside INR monitoring through [facility] at discharge -discussed with patient and family, although a lower extremity ultrasound would be the appropriate next step to evaluate for the source of the clot, since it will not ultimately guide changer recommendations, will hold on ultrasound at this time with the working diagnosis being that the lower extremities over the source of the clot 2. Chronic immobility. Left hip fracture, status post repair, status post loosening of prosthesis after recurrent falls, currently with Lidoderm patch for supportive care -as needed oxycodone for ongoing pain management -readdress with patient and family tomorrow whether they would want outpatient palliative consultation through [facility] 3. Likely coronary artery disease with likely ischemic cardiomyopathy. Unclear whether lower extremity edema is secondary to an element of CHF verses DVT, chest x-ray currently does not demonstrate any evidence of acute CHF and he is not currently on any diuretics -defer this to the outpatient setting as the patient's goals of care are still somewhat unclear and the patient is not demonstrating acute pathology 4. Atelectasis. Acute, incentive spirometer or 5. BPH. Continue home medications Diet. Cardiac Prophylaxis. High risk, currently on Lovenox 60 twice daily Code. Full per patient, his daughter is MD JAEGER Disposition. Anticipated discharge is 08/07, pending stability of conditions outlined above. I have discussed patient's presentation with Dr. Jonathan Rodriguez, he and I both agree that the patient warrants observation overnight for stabilization of the above and then safe discharge planning.
[2017-08-06] MEDS ORDERED: PNEUMOC 13-VAL CONJ-DIP CRM/PF 0.5 ML SYR IM ONE (21:29)
[2017-08-06] MEDS: GABAPENTIN 100 MG CAP PO SCH (21:55)
[2017-08-06] MEDS: ACETAMINOPHEN 325 MG TAB PO PRN (21:55)
[2017-08-07] MEDS ORDERED: ENOXAPARIN 60 MG/0.6 ML SYR SC SCH
[2017-08-07 04:14] VITALS: RESP 14
[2017-08-07 05:00] LABS: INR 1.12 (0.83-1.16); PROTIME(PATIENT) 14.6 SEC (12.0-15.0)
[2017-08-07] MEDS: GABAPENTIN 100 MG CAP PO SCH (08:26)
[2017-08-07] MEDS: ENOXAPARIN 60 MG/0.6 ML SYR SC SCH (08:26)
[2017-08-07] MEDS: ACETAMINOPHEN 325 MG TAB PO PRN (08:34)
[2017-08-07 08:43] VITALS: BP 82/50; PULSE 67; TEMP 96.8; O2SAT 92
[2017-08-07] MEDS ORDERED: MULTIVITAMINS 1 EACH TAB PO SCH (09:00)
--- NOTE | 2017-08-07 13:43 | GDS ---
[f rep st] DISCHARGE SUMMARY DISCHARGE DIAGNOSES: Include: 1. Acute pulmonary emboli. 2. Coronary artery disease. 3. Hyperthyroidism. 4. Benign prostatic hypertrophy. CONSULTATIVE SERVICES: None. PROCEDURES: None. HISTORY OF PRESENT ILLNESS: This is an 81-year-old male who presents with complaints of shortness of breath. For details of patient's initial presentation, please see the History and Physical dated . HOSPITAL COURSE: Acute pulmonary embolism. Patient was admitted to the medical-surgical floor, [facility] ed on Lovenox, and initiated on Coumadin therapy. Patient remained on room air without significant p leuritic chest pain, being discharged after anticoagulation education by both medical doctor and deedee cedeño with Lovenox injections, oral warfarin, and anticipated INR checks at [facility] in 48 hour s time. The patient is hemodynamically stable for disposition. MEDICATIONS AT THE TIME OF TRANSFER: Please reference the med rec printed on 08/07/2017. FOLLOWUP APPOINTMENTS: Include at [facility] to be arranged by the patient's daughter for the or Tuesday following disposition. PENDING STUDIES: At the time of this dictation are none. TIME SPENT: I spent greater than 30 minutes in the planning and coordination of this discharge. /[id number]/MODL
--- NOTE | 2017-08-07 15:08 | ASDISCHSUM ---
Discharge Information Plan Status:Home with No Needs Medically Cleared to Leave:08/07/2017 Discharge Date:08/07/2017 01:10 PM CM D/C Disposition:Home, Routine, Self-Care ADT D/C Disposition:Home, Routine, Self-Care Projected Discharge Date:08/07/2017 01:10 PM Transportation at D/C:Family Discharge Delay Reason: Follow-Up Date:08/07/2017 01:10 PM Discharge Slot:1 - 8:01 am - 12:00 noon Final Diagnosis:Acute pulmonary embolism, CAD, hyperthyroid, BPH Placement Information Patient Contact Information Contact Name:FRANSICO Relationship:Daughter Address:[address] [place] [address] Work Phone: [facility]:MELFA Alternate Phone: [facility]/Zip Code:[place] [address] Email: Financial Information Financial Class:Self-Pay Primary Plan Desc:SELF PAY Primary Plan Number: Secondary Plan Desc: Secondary Plan Number: Assessment Information [facility] CM Progress Note CM Note CM Note Notes: Reviewed chart, spoke with Dr. Loera, and VIRA Nicolas regarding discharge plan of care, pt's progress. Pt to discharge home today with Coumadin and Lovenox for pulmonary emboli. Pt is Portuguese speaking only. Spoke with Nicol Him Clerk. Per Nicol, pt's dghtr has previously administered Lovenox injections and is comfortable assisting again. Pt and family are declining home care at this time. Pt is a self pay and does not have the ability to pay for additional services. Per Nicol, pt also does not have the ability to obtain Lovenox prescription prior to Tue08/08/17 (pt receives discounted Lovenox through a medication assistance program at the [facility]). CM asked to provide two doses of Lovenox 60 mg syringes (for and Tuesday morning) on pt's behalf. Medication obtained via [facility], $11.89 charged to the department. Call placed to [facility] pharmacy on , at Dr. Loera's request, to cancel Lovenox prescription previously called in. Prescriptions printed and given to dghtr at family request. All discharge instructions reviewed by VIRA Nicolas and Jensen CamarenaHim Clerk. Pt to follow up with [facility] on Tue08/08/17 to schedule an appointment and to obtain prescriptions. Teaching completed by VIRA Nicolas on Lovenox administration. Pt to discharge home with family support and no further identified needs. CM avail for any other issues or concerns. Discharge plan: Home with family support Date Signed: 08/07/2017 03:07 PM Electronically Signed By:Brisa Darby RN Intervention Information Intervention Type:Medication Date of Service:08/07/2017 02:53 PM Patient Type:Observation Staff Member:VIRA Darby Taylor Hours:0.25 Discipline: Severity: Comment:Pt self pay, unable to obtain Lovenox prescriptions prior to Tue08/08/17. Lovenox 60 mg dispense 2 injections provided through Medication Assistance Program.
--- NOTE | 2017-08-07 15:20 | ASMTLACE ---
[facility] Length of stay for Answers: 1 day current admission Acuity / Level of Answers: No Care: Did the patient have an inpatient admission? Comorbidities - select Answers: Coronary Artery Disease all that apply History of falls Other Notes: Wheelchair bound, pulmonary emboli, BPH, Hyothyroid # of Emergency department Answers: 1-2 visits in the last 6 months Score: 8 Date Signed: 08/07/2017 03:19 PM Electronically Signed By:Brisa Darby RN
[2017-08-07] MEDS ORDERED: FINASTERIDE 5 MG TAB PO SCH (21:00)
[2017-08-07] MEDS ORDERED: TAMSULOSIN HCL 0.4 MG CAP PO SCH (21:00)
[2017-08-08] MEDS ORDERED: LIDOCAINE 4%/MENTHOL 1% PATCH TD SCH (09:00)
[2017-08-08] MEDS ORDERED: METHIMAZOLE 5 MG TAB PO SCH (09:00)
== END 2017-08-07 13:10 | disposition home or self-care (01) ==
LOC: F3E 20:06
PROVIDERS: ADMIT Internal Medicine; ATTEND Internal Medicine
DX: I26.99 Other pulmonary embolism without acute cor pulmonale (principal); I25.10 Atherosclerotic heart disease of native coronary artery without angina pectoris; E03.9 Hypothyroidism, unspecified; N40.0 Benign prostatic hyperplasia without lower urinary tract symptoms
CPT/HCPCS: 96374; 97116-GP; 97162-GP; 97165-GO; G0009; G0378; J1650; J2270; Q9967

== ENCOUNTER 2018-01-18 11:20 | Inpatient (IN) | payer MEDICAID, OTHER ==
[2018-01-18] MEDS ORDERED: NS 500 ML IV ONE ×3 (11:41→18:15)
[2018-01-18 11:52] LABS: PLATELET COUNT 328 10^3/uL (150-400)
[2018-01-18] MEDS ORDERED: NS 1,000 ML IV ONE ×2 (12:17→18:54)
[2018-01-18 12:24] LABS: INR 1.76 (0.83-1.16); PROTIME(PATIENT) 20.6 SEC (12.0-15.0)
[2018-01-18] MEDS ORDERED: PIPERACILLIN/TAZO 4.5 GM/DEX 100 ML IV ONE (14:06)
[2018-01-18] MEDS ORDERED: NS 400 ML IV ONE (14:07)
[2018-01-18] MEDS ORDERED: ONDANSETRON 4 MG/2 ML VIAL IVP PRN (14:09)
[2018-01-18] MEDS ORDERED: ONDANSETRON DISINTEGRATING 4 MG TAB PO PRN (14:09)
[2018-01-18] MEDS ORDERED: ACETAMINOPHEN 325 MG TAB PO PRN (14:09)
[2018-01-18] MEDS ORDERED: IOPAMIDOL (ISOVUE-300) 100 ML BTL ONE (14:18)
--- NOTE | 2018-01-18 15:36 | CPEKG ---
Test Reason : OPEN Blood Pressure : / mmHG Vent. Rate : 078 BPM Atrial Rate : 078 BPM P-R Int : 154 ms QRS Dur : 103 ms QT Int : 392 ms P-R-T Axes : 028 004 026 degrees QTc Int : 447 ms Sinus rhythm Low voltage, extremity and precordial leads Confirmed by Lexi Campoverde ([id number]) on 01/18/2018 3:35:53 PM Referred By: Confirmed By:Lexi Campoverde
--- NOTE | 2018-01-18 16:19 | EDPHY ---
H & P Stated Complaint: ELKINS SOB WEAKNESS Time Seen by Provider: 01/18/18 11:36 HPI/ROS: CHIEF COMPLAINT: Headache, short of breath, weak, altered mental status Information obtained with the aid of a Samoan research investigator. HISTORY OF PRESENT ILLNESS: This is an 82-year-old male with a history of coronary artery disease and PE who is brought to the emergency room by his daughter who is concerned because he was difficult to wake in this morning and seemed confused. She also thought that his right leg might be weak. He reported that he felt somewhat short of breath and that he had anterior chest pain earlier, none now. He has not had fever. He denies cough at the time of my initial interview. He also reports a posterior headache that he describes as burning in nature. It is constant. He does not usually experience headaches. He has a history of PE/DVT and was admitted in July of this year with PE. He is taking Pradaxa. REVIEW OF SYSTEMS: A ten system review of systems was performed and is negative with the exception of the items mentioned in the HPI. Past medical history: 1. Coronary artery disease, remote MS; cardiomyopathy 2. DVT/PE 3. Left hip fracture with subsequent dislocation of prosthesis Past surgical history: 1. Left hip 2. Left knee 3. IVC filter placed in 2016, removed in 2017 Family history: Social history: He lives with family members. His daughter is here with him today and is his medical power of equities analyst. He does not use tobacco products. General Appearance: Alert. Vital signs reviewed. Blood pressure 79/46 on arrival. Heart rate 81. Oxygen saturation 91% on room air. Afebrile. Eyes: Pupils equal and round, no conjunctival injection, no discharge. Anicteric. ENT, Mouth: Mucous membranes are moist, no oropharyngeal erythema or edema. Neck: No lymphadenopathy, supple. No JVD. Trachea midline. Respiratory: Lungs are clear to auscultation; no wheezes, rales, or rhonchi. He is not tachypneic. Cardiovascular: Regular rate and rhythm; no murmur, rub, or gallop. Gastrointestinal: Abdomen is soft and nontender, no masses or organomegaly, bowel sounds normal. Skin: Warm and dry, no rashes on exposed skin, normal color. Back: Nontender to palpation over the thoracolumbar spine. No CVAT. Extremities: Trace bilateral lower extremity edema, no calf tenderness or swelling. Left hip is externally rotated and foreshortened. Neurological: Alert and oriented to person only. Spontaneous movement of all 4 extremities. MEAGHAN. EOMI facial expressions symmetric. Tongue midline. Soaping Department Supervisor strength 4+ over 5 bilaterally. Psychiatric: Normal affect. 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 PSH: hip/knee surg 2016 - Social History Smoking Status: Never smoked Constitutional: Initial Vital Signs Temperature (C) 37.4 C 01/18/18 11:26 Heart Rate 81 01/18/18 11:26 Respiratory Rate 20 01/18/18 11:26 Blood Pressure 79/46 L 01/18/18 11:26 O2 Sat (%) 91 L 01/18/18 11:26 O2 Delivery Mode Nasal Cannula O2 (L/minute) 2 Allergies/Adverse Reactions: No Known Allergies Allergy (Verified 09/26/16 12:40) Home Medications: Medication Instructions Recorded Methimazole [Tapazole 5MG (*)] 2.5 mg PO Q2D 09/24/16 Multivitamins [Multivitamin (*)] 1 tab PO DAILY 09/24/16 Calcium Carb W/Vit D [Calcium Carb 1,000 mg PO HS 08/06/17 W/Vit D 500/200 (*)] Finasteride [Proscar 5 MG (*)] 5 mg PO HS 08/06/17 Gabapentin [Neurontin 100 MG (*)] 200 mg PO BID 08/06/17 Lidocaine [Lidoderm] 1 patch TP Q2D 08/06/17 Tamsulosin HCl [Flomax 0.4 MG (*)] 0.4 mg PO HS 08/06/17 Enoxaparin [Lovenox 60 MG (*)] 60 mg SC BID #12 syr 08/07/17 Hydrocodone/APAP 5/325 [[place] 1 each PO Q4 PRN #14 tab 08/07/17 5/325 (*)] Warfarin Sodium [Coumadin 5MG (*)] 5 mg PO DAILY AT 4PM #30 tab 08/07/17 Medical Decision Making - Diagnostics Imaging Results: Imaging Impressions Chest X-Ray 01/18/18 11:45 Impression: 1. Poor inspiration with increase in compressive atelectatic changes at the lung bases. 2. Prominence of pulmonary vasculature along with prominent perihilar interstitial markings and bibasilar interstitial markings. Consider mild fluid overload. Head CT 01/18/18 12:18 Impression: 1. No acute intracranial findings. 2. Diffuse cerebral atrophy with periventricular and subcortical low attenuation consistent with chronic microvascular ischemic gliosis. 3. Punctate left temporal parenchymal calcification, doubtful clinical significance. Findings discussed with ONOFRE ABRAHAM 01/18/2018 at 13:00. ED Course/Re-evaluation: 82-year-old male who presents with an alteration in his mental status, some shortness of breath, possible right leg weakness, and headache. He was hypotensive and mildly hypoxic at the time of his arrival. His daughter tells me that he is taking Pradaxa for PE. I am unable to learn what other medications he is taking as neither he nor his daughter is able to name them. My initial concern was for intracranial hemorrhage/stroke in the setting of anticoagulation. I was also concerned about a possible cardiac etiology. He denied chest pain at the time of my evaluation but had had some chest pain earlier. He did not meet the sepsis screening criteria as he had a normal temperature, normal heart rate, and normal respiratory rate. I had no suspected source of infection. However, given his hypotension, I initiated orders that would screen for sepsis. Two IVs were started and he was given 500 mL of IV fluid which was followed by another L of IV fluid. His chest x-ray was initially read by the radiologist as suggestive of mild fluid overload-- hence the somewhat tentative administration of fluids initially. His 1st lactate was 2.8. At this point I became more concerned about sepsis and a possible source. He continued with hypotension but his mental status improved. He was not tachycardic at any time. He was initially oriented only to person but subsequently he cleared and was able to answer my questions, both orientation questions and questions about his recent symptoms, appropriately. The clinical picture was somewhat confusing. Head CT was obtained to rule out intracranial hemorrhage and was negative for any acute findings. I reviewed the films. After receiving the results of the head CT, I proceeded with a sepsis protocol and he was given the 1900 mL of fluid as recommended per protocol. Repeat lactate was normal at 1.2. He was seen in the emergency department by Dr. Aguirre, the admitting physician. CT scan of the chest and abdomen have been ordered, searching for a source of infection. At the time of my exam his abdomen has been soft and nontender. He has not reported abdominal symptoms to me. No urine has been obtained yet. Arrangements have been made for him to be admitted to a step- down bed. CT scan of the abdomen does not reveal an infection but the chest CT shows right upper lobe infiltrate, presumably pneumonia. Zosyn was initially administered but antibiotics will be adjusted to cover community-acquired pneumonia. Systolic blood pressure at the time that he left the emergency department was 98. His mentation has cleared and has remained clear. He has not been tachycardic. Dr. Aguirre and I have spoken about the management of this patient and it is agreed that he can be successfully resuscitated with the 2 peripheral IVs that are currently in place. There is no plan to use pressors at this time. He has shown continued improvement with the current treatments. I am aware that following the sepsis protocol strictly would prompt the placement of a central line in this patient. At 1:39 p.m. He had a mean arterial pressure of 64, with 65 being the cut off for placement of a central line in a patient with sepsis following the administration of the IV fluid bolus. At 1500 his mean arterial pressure was 67 with a repeat mean arterial pressure of 69. In discussion with Dr. Aguirre it is agreed that he has adequate IV access and that placement of a central line is not needed. Differential Diagnosis: I considered a differential diagnosis that includes but is not limited intracranial hemorrhage/stroke, pneumonia, PE, intra-abdominal infection, urinary tract infection, pyelonephritis, and influenza. Critical Care Time: I spent a total of 40 minutes of critical care time in obtaining history, performing a physical exam, bedside monitoring of interventions, collecting and interpreting tests and discussion with consultants but not including time spent performing procedures. He was at risk of cardiopulmonary collapse. - Data Points Laboratory Results: Laboratory Results 01/18/18 11:35 01/18/18 11:35 01/18/18 01/18/18 01/18/18 12:01 12:01 11:56 WBC RBC Hgb Hct MCV MCH MCHC RDW Plt Count MPV Neut % (Auto) Lymph % (Auto) [place] % (Auto) Eos % (Auto) Baso % (Auto) Nucleat RBC Rel Count Absolute Neuts (auto) Absolute Lymphs (auto) Absolute Monos (auto) Absolute Eos (auto) Absolute Basos (auto) Absolute Nucleated RBC Immature Gran % Immature Gran # PT 20.6 SEC H SEC (12.0-15.0) INR 1.76 H (0.83-1.16) APTT 55.3 SEC H SEC (23.0-38.0) VBG Lactic Acid 2.8 mmol/L H mmol/L (0.7-2.1) Sodium Potassium Chloride Carbon Dioxide Anion Gap BUN Creatinine Estimated GFR Glucose Calcium Total Bilirubin POC Troponin I 0.00 ng/mL ng/mL (0.00-0.08) 01/18/18 01/18/18 01/18/18 11:35 11:35 11:35 WBC 14.96 10^3/uL H 10^3/uL (3.80-9.50) RBC 3.83 10^6/uL L 10^6/uL (4.40-6.38) Hgb 10.3 g/dL L g/dL (13.7-17.5) Hct 31.7 % L % (40.0-51.0) MCV 82.8 fL fL (81.5-99.8) MCH 26.9 pg L pg (27.9-34.1) MCHC 32.5 g/dL g/dL (32.4-36.7) RDW 20.3 % H % (11.5-15.2) Plt Count 328 10^3/uL 10^3/uL (150-400) MPV 9.6 fL fL (8.7-11.7) Neut % (Auto) 88.5 % H % (39.3-74.2) Lymph % (Auto) 5.7 % L % (15.0-45.0) [place] % (Auto) 4.9 % % (4.5-13.0) Eos % (Auto) 0.0 % L % (0.6-7.6) Baso % (Auto) 0.2 % L % (0.3-1.7) Nucleat RBC Rel Count 0.0 % % (0.0-0.2) Absolute Neuts (auto) 13.25 10^3/uL H 10^3/uL (1.70-6.50) Absolute Lymphs (auto) 0.85 10^3/uL L 10^3/uL (1.00-3.00) Absolute Monos (auto) 0.73 10^3/uL 10^3/uL (0.30-0.80) Absolute Eos (auto) 0.00 10^3/uL L 10^3/uL (0.03-0.40) Absolute Basos (auto) 0.03 10^3/uL 10^3/uL (0.02-0.10) Absolute Nucleated RBC 0.00 10^3/uL 10^3/uL (0-0.01) Immature Gran % 0.7 % % (0.0-1.1) Immature Gran # 0.10 10^3/uL 10^3/uL (0.00-0.10) PT REJ INR REJ APTT REJ VBG Lactic Acid Sodium 137 mEq/L mEq/L (135-145) Potassium 4.3 mEq/L mEq/L (3.3-5.0) Chloride 105 mEq/L mEq/L (97-110) Carbon Dioxide 20 mEq/l L mEq/l (22-31) Anion Gap 12 mEq/L mEq/L (8-16) BUN 16 mg/dL mg/dL (7-23) Creatinine 1.1 mg/dL mg/dL (0.7-1.3) Estimated GFR > 60 Glucose 117 mg/dL H mg/dL (70-100) Calcium 8.8 mg/dL mg/dL (8.5-10.4) Total Bilirubin 1.1 mg/dL mg/dL (0.1-1.4) POC Troponin I Microbiology Results: MICROBIOLOGY 01/18/18 12:01 Nasal, Sinus - Swab Respiratory Panel (PCR) - Final No Organism Detected Medications Given: Hydrocodone Bitart/Acetaminophen ([place] 5/325) 1 tab PO Q4HRS PRN PRN Reason: Pain, Moderate Able to Take PO Stop: 01/28/18 16:23 Last Admin: 01/18/18 16:46 Dose: 1 tab Azithromycin 500 mg/ Sodium (Chloride) 255 mls @ 255 mls/hr IV DAILY CAR PRN Reason: Protocol Stop: 02/17/18 16:29 Last Admin: 01/18/18 16:46 Dose: 255 mls Discontinued Medications Sodium Chloride (Ns) 500 mls @ 0 mls/hr IV ONCE ONE PRN Reason: Wide Open Stop: 01/18/18 11:42 Last Admin: 01/18/18 11:43 Dose: 500 mls Sodium Chloride (Ns) 1,000 mls @ 0 mls/hr IV ONCE ONE PRN Reason: Wide Open Stop: 01/18/18 12:18 Last Admin: 01/18/18 12:17 Dose: 1,000 mls Piperacillin/Tazobactam/Dextrose (Zosyn (Premix)) 100 mls @ 200 mls/hr IV EDNOW ONE PRN Reason: Protocol Stop: 01/18/18 14:35 Last Admin: 01/18/18 14:54 Dose: 100 mls Sodium Chloride (Ns) 400 mls @ 1,000 mls/hr IV EDNOW ONE PRN Reason: Protocol Stop: 01/18/18 14:30 Last Admin: 01/18/18 14:10 Dose: 400 mls Point of Care Test Results: Chemistry 01/18/18 11:56 POC Troponin I 0.00 ng/mL ng/mL (0.00-0.08) Departure - Departure Disposition: [facility] Inpatient Acute Clinical Impression: Pneumonia Qualifiers: Pneumonia type: due to unspecified organism Laterality: right Lung location: upper lobe of lung Qualified Code(s): J18.1 - Lobar pneumonia, unspecified organism Sepsis Qualifiers: Sepsis type: sepsis due to unspecified organism Qualified Code(s): A41.9 - Sepsis, unspecified organism Condition: Critical
[2018-01-18] MEDS ORDERED: HYDROCODONE/APAP 5/325 TAB PO PRN (16:24)
--- NOTE | 2018-01-18 16:30 | PDGENHP ---
History and Physical - Chief Complaint Acute fatigue - History of Present Illness Primary care provider: [facility] HPI: 82-year-old male presenting with acute fatigue characterized as generalized, with complete lack of energy on the day of presentation as well as associated confusion, disorientation, pain located in his posterior head, nonproductive cough. The patient reports that he had otherwise been feeling well up until the evening prior to presentation. On the evening prior to presentation, the patient began experiencing pain located in his anterior abdomen, cough, headache. Duration of symptoms was persistent thereafter, resulting in poor sleep, confusion and disorientation on the morning of presentation. He reports these currently too weak to care for self. He is required to complete the majority of his activities of daily living, given his family members' work schedules. Upon arrival, patient notably had a systolic blood pressure in the 70s, his lactic acid level was elevated 2.8, and he was notably confused and disoriented. He met severe sepsis criteria, and was initiated on the protocol. History Information - Allergies/Home Medication List Allergies/Adverse Reactions: No Known Allergies Allergy (Verified 09/26/16 12:40) Home Medications: Methimazole [Tapazole 5MG (*)] 2.5 mg PO Q2D 09/24/16 [Last Taken 08/06/17 08:00 ] Multivitamins [Multivitamin (*)] 1 tab PO DAILY 09/24/16 [Last Taken 08/06/17 10 :00] Calcium Carb W/Vit D [Calcium Carb W/Vit D 500/200 (*)] 1,000 mg PO HS 08/06/17 [Last Taken 08/05/17 22:00] Finasteride [Proscar 5 MG (*)] 5 mg PO HS 08/06/17 [Last Taken 08/05/17 21:00] Gabapentin [Neurontin 100 MG (*)] 200 mg PO BID 08/06/17 [Last Taken 08/06/17 11 :00] Lidocaine [Lidoderm] 1 patch TP Q2D 08/06/17 [Last Taken 08/06/17 13:00] Tamsulosin HCl [Flomax 0.4 MG (*)] 0.4 mg PO HS 08/06/17 [Last Taken 08/05/17 21 :00] I have personally reviewed and updated: family history, medical history, social history, surgical history - Past Medical History coronary artery disease (With reported myocardial infarction a couple decades ago and subsequent cardiomyopathy, unclear type), DVT (Status post hip and knee repair surgeries, previously on Coumadin and with IVC filter until February 2017 , when the filter was removed), pulmonary embolism (Recurrent, most recently diagnosed July of 2017, on systemic anticoagulation) Additional medical history: Mechanical fall in 2017 with subsequent loosening of his prosthesis in his left hip - Surgical History Additional surgical history: Left hip and knee surgery in 2016. IVC filter placement following that surgery, removal 2016 - Family History Additional family history: No venous thromboembolism - Social History Smoking Status: Never smoked Alcohol Use: None Drug Use: None Additional social history: Currently cared for by his family, remains mostly chair bound during the vast majority of the day Review of Systems Review of Systems: ROS: 10pt was reviewed & negative except for what was stated in HPI & below Constitutional: Reports: weakness Respiratory: Reports: cough Gastrointestinal: Reports: vomitting, abdominal pain Neurological: Reports: other (Confusion, disorientation) Physical Exam Physical Exam: Temp Pulse Resp BP Pulse Ox 36.3 C 73 17 88/47 L 97 01/18/18 15:45 01/18/18 16:00 01/18/18 16:00 01/18/18 16:00 01/18/18 16:00 O2 (L/minute) 2 Constitutional: appears nourished, not in pain, chronically ill appearing, No uncomfortable Eyes: PERRL, anicteric sclera, EOMI Ears, Nose, Mouth, Throat: hearing normal, other (Tacky mucous membranes) Cardiovascular: systolic murmur (1/6 sternum), edema (Trace left lower extremity ), No irregularly irregular, No tachycardia Respiratory: rhonchi (Right lateral segment), other (Prominent cough on inspiration), No expiratory wheeze, No bronchial breath sounds, No respiratory distress Gastrointestinal: normoactive bowel sounds, soft, non-tender abdomen, no palpable masses, No guarding, No distension Skin: warm, No rash Musculoskeletal: other (Internally rotated and shortened left lower extremity, healed scar over left hip) Neurologic: AAOx3, sensation intact bilaterally, CN II-XII Intact, No facial droop Psychiatric: interacting appropriately, not anxious, not encephalopathic, thought process linear Lab Data & Imaging Review 01/18/18 11:35 01/18/18 11:35 WBC 14.96 10^3/uL (3.80-9.50) H 01/18/18 11:35 RBC 3.83 10^6/uL (4.40-6.38) L 01/18/18 11:35 Hgb 10.3 g/dL (13.7-17.5) L 01/18/18 11:35 Hct 31.7 % (40.0-51.0) L 01/18/18 11:35 MCV 82.8 fL (81.5-99.8) 01/18/18 11:35 MCH 26.9 pg (27.9-34.1) L 01/18/18 11:35 MCHC 32.5 g/dL (32.4-36.7) 01/18/18 11:35 RDW 20.3 % (11.5-15.2) H 01/18/18 11:35 Plt Count 328 10^3/uL (150-400) 01/18/18 11:35 MPV 9.6 fL (8.7-11.7) 01/18/18 11:35 Neut % (Auto) 88.5 % (39.3-74.2) H 01/18/18 11:35 Lymph % (Auto) 5.7 % (15.0-45.0) L 01/18/18 11:35 [place] % (Auto) 4.9 % (4.5-13.0) 01/18/18 11:35 Eos % (Auto) 0.0 % (0.6-7.6) L 01/18/18 11:35 Baso % (Auto) 0.2 % (0.3-1.7) L 01/18/18 11:35 Nucleat RBC Rel Count 0.0 % (0.0-0.2) 01/18/18 11:35 Absolute Neuts (auto) 13.25 10^3/uL (1.70-6.50) H 01/18/18 11:35 Absolute Lymphs (auto) 0.85 10^3/uL (1.00-3.00) L 01/18/18 11:35 Absolute Monos (auto) 0.73 10^3/uL (0.30-0.80) 01/18/18 11:35 Absolute Eos (auto) 0.00 10^3/uL (0.03-0.40) L 01/18/18 11:35 Absolute Basos (auto) 0.03 10^3/uL (0.02-0.10) 01/18/18 11:35 Absolute Nucleated RBC 0.00 10^3/uL (0-0.01) 01/18/18 11:35 Immature Gran % 0.7 % (0.0-1.1) 01/18/18 11:35 Immature Gran # 0.10 10^3/uL (0.00-0.10) 01/18/18 11:35 PT 20.6 SEC (12.0-15.0) H 01/18/18 12:01 INR 1.76 (0.83-1.16) H 01/18/18 12:01 APTT 55.3 SEC (23.0-38.0) H 01/18/18 12:01 VBG Lactic Acid 1.2 mmol/L (0.7-2.1) 01/18/18 14:49 Sodium 137 mEq/L (135-145) 01/18/18 11:35 Potassium 4.3 mEq/L (3.3-5.0) 01/18/18 11:35 Chloride 105 mEq/L (97-110) 01/18/18 11:35 Carbon Dioxide 20 mEq/l (22-31) L 01/18/18 11:35 Anion Gap 12 mEq/L (8-16) 01/18/18 11:35 BUN 16 mg/dL (7-23) 01/18/18 11:35 Creatinine 1.1 mg/dL (0.7-1.3) 01/18/18 11:35 Estimated GFR > 60 01/18/18 11:35 Glucose 117 mg/dL (70-100) H 01/18/18 11:35 Calcium 8.8 mg/dL (8.5-10.4) 01/18/18 11:35 Total Bilirubin 1.1 mg/dL (0.1-1.4) 01/18/18 11:35 POC Troponin I 0.00 ng/mL (0.00-0.08) 01/18/18 11:56 Urine Color YELLOW 01/18/18 15:30 Urine Appearance CLEAR 01/18/18 15:30 Urine pH 6.0 (5.0-7.5) 01/18/18 15:30 Ur Specific [place] 1.032 (1.002-1.030) H 01/18/18 15:30 Urine Protein NEGATIVE (NEGATIVE) 01/18/18 15:30 Urine Ketones NEGATIVE (NEGATIVE) 01/18/18 15:30 Urine Blood NEGATIVE (NEGATIVE) 01/18/18 15:30 Urine Nitrate NEGATIVE (NEGATIVE) 01/18/18 15:30 Urine Bilirubin NEGATIVE (NEGATIVE) 01/18/18 15:30 Urine Urobilinogen NEGATIVE EU (0.2-1.0) 01/18/18 15:30 Ur Leukocyte Esterase NEGATIVE (NEGATIVE) 01/18/18 15:30 Urine Glucose NEGATIVE (NEGATIVE) 01/18/18 15:30 Visualized and Interpreted imaging results: Yes Interpretation: Right upper lobe posterior infiltrate, atelectasis on chest CT Assessment & Plan Assessment: 82-year-old male presents with severe sepsis most likely secondary to community- acquired pneumonia Plan: 1. Severe Sepsis. Present on admission, evidenced by Q sofa score of 3, with notable altered mental status on presentation as well as tachypnea, hypotension , source of infection is pulmonary, resulting in autonomic dysregulation and end -organ failure notably lactic acidosis -discussed with Dr. Lexi Campoverde, she and I both agree the patient should be initiated on the severe sepsis protocol with empiric fluids, empiric IV antibiotics, hold central line placement dependent on whether patient clears his lactic acid level on repeat draw -adjust from IV Zosyn to IV ceftriaxone and azithromycin given that pulmonary source is confirmed on chest CT -blood culture sent -hold on further IV fluids after the empiric bolusing based on the patient's history of previous myocardial infarction 2. Community-acquired pneumonia. Present on admission, present in the right upper lobe on chest CT, discussed with Dr. Bauer -send sputum cultures, urine Legionella, urine strep -day 1 of IV antibiotics, ceftriaxone and azithromycin 3. Atelectasis. Present on chest imaging, incentive spirometer, secondary to immobility 4. Acute metabolic acidosis. Secondary to lactic acid from sepsis, continue IV fluid challenge and repeat lactic acid level 5. History of recurrent venous thromboembolism. Reviewed outside records including 08/07/[address] Nick Loera, recounts patient was discharged on therapeutic Lovenox and Coumadin bridge, to be managed by the [facility] -INR currently subtherapeutic, continue home dosage of Coumadin, repeat PT and INR in a.m. 6. Coronary artery disease. Chronic, continue medications 7. BPH. Chronic, continue home medications once reconciled 8. 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 [place] and Tylenol, Lidoderm patch Diet. Cardiac Prophylaxis. High risk patient, continue on Coumadin with Lovenox bridge until therapeutic Code. Full per patient, his daughter is MD POA Disposition. Anticipated discharge uncertain this time, anticipated length stay is greater than 48 hr for reasonable medical necessity including sepsis. 35 min of critical care time spent with this patient, at bedside, coordinating care with Dr. Lexi Campoverde, specifically addressing the patient's severe sepsis which renders him critically ill with high risk of worsening morbidity and/or mortality.
[2018-01-18] MEDS: AZITHROMYCIN IV 500 MG in NS 250 ML IV SCH (16:46)
[2018-01-18] MEDS ORDERED: NS 1,000 ML IV SCH (19:00)
[2018-01-19] MEDS ORDERED: TEARS/DEXTRAN 70/HYPROMELLOSE 15 ML OPHT.BTL EACHEYE PRN (01:35)
[2018-01-19] MEDS: diphenhydrAMINE 25 MG CAP PO PRN ×2 (01:44→11:18)
[2018-01-19 06:35] LABS: PLATELET COUNT 254 10^3/uL (150-400)
[2018-01-19] MEDS: AZITHROMYCIN IV 500 MG in NS 250 ML IV SCH (08:48)
[2018-01-19] MEDS ORDERED: ENOXAPARIN 60 MG/0.6 ML SYR SC SCH (10:15)
--- NOTE | 2018-01-19 10:41 | ECHO ---
[email or web address] [address] [address] Main: [phone] Fax: Transthoracic Echocardiogram Name: ISIDORO BANDA MR#: [id number] Study Date: 01/19/2018 Study Time: 07:40 AM Date of : 1935 Age: 82 year(s) Height: 160 cm (63 in.) Weight: 63.5 kg (140 lb.) BSA: 1.66 m2 Gender: Male Examination: Echo Indication: Hypotension Image Quality: Contrast: Requested by: Sen Aguirre BP: 103 mmHg/58 mmHg Heart Rate: Rhythm: Normal sinus rhythm Indication: Hypotension Procedure Staff Director Of Strategic Programs: Arthur Johnson RDCS Reading Physician: Matt Vicente MD Requesting Provider: Conclusions: Normal size left ventricle. Normal global systolic LV function. The ejection fraction is estimated to be 55-60 %. Diastolic dysfunction is present. . Normal RV function. The left atrium is normal in size. The right atrium is normal in size. There is mild thickening of the mitral valve leaflets. Mild mitral annular calcification. There is no significant mitral valve regurgitation. The pulmonary artery pressure is mildly increased. No pericardial effusion. Measurements: Chambers Valvular Assessment AV/MV Valvular Assessment TV/PV Normal Normal Normal Name Value Range Name Value Range Name Value Range Ao Criss (MM): 3.7 cm (2.2 cm-3.7 AV Vmax: 1.00 m/s (1 m/s-1.7 TR Vmax: 2.88 mm/s ( - ) cm) m/s) TR PGmax: 33 mmHg ( - ) IVSd (2D): 0.8 cm (0.6 cm-1.1 AV maxP mmHg ( - ) syst. PAP: 38 mmHg ( - ) cm) AV meanP mmHg ( - ) PV Vmax: 0.83 m/s (0.6 m/s-0.9 LVDd (2D): 3.6 cm (4.2 cm-5.9 LVOT Vmax: 0.74 m/s (0.7 m/s-1.1 m/s) cm) m/s) PV PGmax: 3 mmHg ( - ) LVDs (2D): 2.7 cm (2.1 cm-4 STEPHY (Vmax): 2.3 cm2 ( - ) cm) STEPHY (VTI): 2.5 cm ( - ) LVPWd (2D): 0.9 cm (0.6 cm-1 AR (PHT): 548 ms ( - ) cm) MV E Vmax: 0.97 m/s ( - ) LVOTd 2.0 cm 2.0 cm mm MV A Vmax: 0.81 m/s ( - ) LVEF (2D): 51 (>=54 %) MV E/A: 1.20 ( - ) EF Range: 55-60 % Patient: ISIDORO BANDA Study Date: 01/19/2018 Page 1 of 2 07:40 AM Continued Measurements: Chambers Valvular Assessment AV/MV Valvular Assessment TV/PV Name Value Name Value Name Value LADs Lon.6 cm MV E' Septal: 0.06 m/s CVP (est.): 5 mmHg LA Area: 16.3 cm2 MV E/E' Septal: 15.80 LA Volume: 43 ml MV E/E' Lateral: 24.30 LA Volume Index: 25.9 ml/m2 AR Vmax: 2.02 cm/s Findings: Left Ventricle: Normal size left ventricle. No LV hypertrophy. Normal global systolic LV function. The ejection fraction is estimated to be 55-60 %. No regional wall motion abnormality. Diastolic dysfunction is present. . Right Ventricle: Normal size right ventricle. Normal RV function. Left Atrium: The left atrium is normal in size. Right Atrium: The right atrium is normal in size. Mitral Valve: There is mild thickening of the mitral valve leaflets. Mild mitral annular calcification. There is no significant mitral valve regurgitation. Aortic Valve: Mild aortic cusp calcification is noted. The aortic valve is tri-leaflet. Mild aortic valve regurgitation is present. No aortic valve stenosis is present. Tricuspid Valve: The tricuspid valve appears normal. Trivial tricuspid valve regurgitation. The pulmonary artery pressure is mildly increased. Pulmonic Valve: The pulmonic valve is normal in appearance and function. Aorta: The aorta is normal. Pericardium: No pericardial effusion. (No Signature Object) Patient: ISIDORO BANDA Study Date: 01/19/2018 Page 2 of 2 07:40 AM [id number]
--- NOTE | 2018-01-19 10:50 | PDMN ---
Medical Necessity Medical necessity: Pt meets inpt criteria per MD order and MCG M-160, Sepsis and Other Febrile Illness, without Focal Infection, A-3 days. Est LOS >2MN for management of severe sepsis with acute metabolic acidosis (lactic acid 2.8), altered mental status, tachypnea, and hypotension (79/46 upon admission), RUL pneumonia shown on chest CT. Sepsis protocol in place, IVF, IV ABX's, bl and sputum cultures pending, med nec ongoing inpt eval/treatment for criticall ill pt.
[2018-01-19 10:56] LABS: INR 1.56 (0.83-1.16); PROTIME(PATIENT) 18.8 SEC (12.0-15.0)
--- NOTE | 2018-01-19 10:58 | ASMTCMCOM ---
CM Note CM Note Notes: Chart reviewed and patient status discussed in rounds. Patient admitted with signs of sepsis and has responded well to interventions, therapies pending. Clinically improved and ready to transfer to med surg. Lives with family and has good support. Under [facility] and has no resources for outpatient services. CM to follow. Plan: TBD Date Signed: 01/19/2018 10:57 AM Electronically Signed By:Vero Avila RN
--- NOTE | 2018-01-19 11:19 | GCON ---
DATE OF CONSULTATION: 01/19/2018 HISTORY OF PRESENT ILLNESS: This patient is an 82-year-old male with a history of coronary artery di sease and recurrent venous thromboembolic disease, presenting with fatigue and mental status changes, pain in his head as well as a nonproductive cough. He is Filipino-speaking only, but history is obta ined through the emergency department records, as well as hospitalist. In any case, he was found hav e a blood pressure in the 70s with an elevated lactate[place] [id number], and a CT scan suggest waqar of pneumonia. He was initially treated with Zosyn while the sepsis protocol was begun as well as he was given IV fluids. The antibiotics were changed to ceftriaxone and Zithromax. He was admitted to the step-down unit. His blood pressure responded well to his IV fluids. This morning, he report s feeling somewhat better with less cough. His blood pressure is resolved. He has never required pr essors, though he does have a small oxygen requirement. PAST MEDICAL HISTORY: Includes: 1. 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 2. BPH. 3. Peripheral neuropathy. 4. Coronary artery disease. 5. Hypothyroid. PAST SURGICAL HISTORY: Includes: 1. Left hip and knee surgery in 2016. 2. IVC filter placement that was eventually removed. FAMILY HISTORY: Noncontributory. SOCIAL HISTORY: He is a nonsmoker. No alcohol. Lives with his family, but sits in a chair on most days. CURRENT MEDICATIONS: Include ceftriaxone, azithromycin, Lovenox, Benadryl, Zofran. PHYSICAL EXAM: VITAL SIGNS: His temperature has been normal. His blood pressure 103/58, respiratio ns of 16, heart rate 55, oxygen saturation 96% on 2 L. GENERAL: He was awake and alert, able to spe ak in full sentences without using accessory muscles for breathing. HEENT: Pupils equally round and reactive to light. Nonicteric and noninjected. Mucous membranes are moist without erythema or exud ate. NECK: Supple without adenopathy or jugular vein distention. LUNGS: Breath sounds were distan t, but clear to auscultation bilaterally without wheezes, rubs, or rales. HEART: Regular rate and r hythm without murmurs, rubs, gallops. ABDOMEN: Soft, nontender, nondistended without hepatosplenome adriana. EXTREMITIES: No clubbing, cyanosis, or edema. NEUROLOGIC: Nonfocal. SKIN: Warm and dry wi thout evidence of rash. OBJECTIVE DATA: Includes a CT scan as described above. White count of 9.8, hematocrit of 28, platel ets 254. INR this morning 1.56. Basic metabolic panel was normal. LFTs were normal. Urine was neg ative. Cultures are currently negative. ASSESSMENT AND PLAN: Severe sepsis with septic shock that responded well to intravenous fluids and a ntibiotics. His blood pressure is substantially better. His lactate has come down and hemodynamical ly remains stable at this time. I think the source for him is this pneumonia and that appears to be better with antibiotics as well. Continue to titrate his oxygen. Encourage him out of bed and activ ity as well as IAS and continue his antibiotics for now. /[id number]/MODL
--- NOTE | 2018-01-19 13:16 | HOSPPROG ---
Hospitalist Progress Note Assessment/Plan: Assessment: 82-year-old male presents with severe sepsis most likely secondary to community- acquired pneumonia Plan: 1. Severe Sepsis. Present on admission, evidenced by Q sofa score of 3, with notable altered mental status on presentation as well as tachypnea, hypotension , source of infection is pulmonary, resulting in autonomic dysregulation and end -organ failure notably lactic acidosis -monitor BCx -SBP stabilized, stop IVF 2. Community-acquired pneumonia. Present on admission, present in the right upper lobe on chest CT -pending uLeg/uStrep -day 2 of IV antibiotics, ceftriaxone and azithromycin 3. Atelectasis. Present on chest imaging, incentive spirometer, secondary to immobility 4. Acute metabolic acidosis. Secondary to lactic acid from sepsis, normalized 5. History of recurrent venous thromboembolism. D/w Dr. Monroe on team rounds, we agreed to bridge w/ lovenox 60 until med rec -med rec reveals pradaxa, restart this evening 6. Coronary artery disease. Chronic, Echo w/o focal wall motion abnl, preserved EF 7. BPH. Chronic, continue home medications once reconciled 8. 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 [place] and Tylenol, Lidoderm patch 9. L eye blephritis. Acute, unclear if simply 2/2 tactile irritation vs. superinfxn -trial cipro gtt -rec supportive warm / cool compress -PRN benadryl Diet. Cardiac Prophylaxis. High risk patient, pradaxa Code. Full per patient, his daughter is MD JAEGER Disposition. ADD 01/20, pending stabilization of above. Remains high risk patient, w/ high risk morbidity/mortality 2/2 issues outlined above. Subjective: less cough, ongoing fatigue, wants to go home Objective: Vital Signs Temp Pulse Resp BP Pulse Ox 36.8 C 62 17 98/52 L 98 01/19/18 11:26 01/19/18 11:26 01/19/18 11:26 01/19/18 11:26 01/19/18 11:26 Laboratory Results 01/19/18 06:25 01/19/18 06:25 01/18/18 01/19/18 01/20/18 05:59 05:59 05:59 Intake Total 3127 Output Total 400 Balance 2727 PT 18.8 SEC (12.0-15.0) H 01/19/18 10:40 INR 1.56 (0.83-1.16) H 01/19/18 10:40 - Pending Discharge Pending Discharge Within 24 Hours: Yes Pending Discharge Date: 01/20/18 Pending Discharge Time: 11:00 - Physical Exam Constitutional: no apparent distress, appears nourished, not in pain, uncomfortable (L eye) Cardiovascular: regular rate and rhythym, no murmur, rub, or gallop, edema ( trace bilat LE) Respiratory: rhonchi (R lateral segment), No reduced air movement, No expiratory wheeze, No bronchial breath sounds, No respiratory distress Gastrointestinal: normoactive bowel sounds, soft, non-tender abdomen, no palpable masses, No distension Genitourinary: no bladder fullness, no bladder tenderness Neurologic: AAOx3 Psychiatric: interacting appropriately, not anxious, not encephalopathic, thought process linear ICD10 Worksheet Patient Problems: Problems Problem Status Onset Pneumonia Acute Sepsis Acute Pulmonary embolism Acute
[2018-01-19] MEDS: LIDOCAINE 4%/MENTHOL 1% PATCH TD SCH (15:34)
[2018-01-19] MEDS: GABAPENTIN 400 MG CAP PO SCH ×2 (15:35→21:00)
[2018-01-19] MEDS: CIPROFLOXACIN 3.5 GM OPHT.OINT LEFTEYE SCH ×2 (15:35→21:03)
[2018-01-19] MEDS: NS 1,000 ML IV SCH (19:10)
[2018-01-19] MEDS: CALCIUM CARB W/VIT D 500 MG TAB PO SCH (21:00)
[2018-01-19] MEDS ORDERED: TAMSULOSIN HCL 0.4 MG CAP PO SCH (21:00)
[2018-01-19] MEDS ORDERED: PATCH REMOVAL 1 EA PATCH TD SCH (21:00)
[2018-01-19] MEDS ORDERED: FINASTERIDE 5 MG TAB PO SCH (21:00)
[2018-01-19] MEDS: DABIGATRAN ETEXILATE MESYL 150 MG CAP PO SCH (21:00)
[2018-01-20] MEDS: NS 1,000 ML IV SCH (03:43)
[2018-01-20] MEDS: GABAPENTIN 400 MG CAP PO SCH (08:40)
[2018-01-20] MEDS: CALCIUM CARB W/VIT D 500 MG TAB PO SCH (08:41)
[2018-01-20] MEDS: DABIGATRAN ETEXILATE MESYL 150 MG CAP PO SCH (08:41)
[2018-01-20] MEDS: CIPROFLOXACIN 3.5 GM OPHT.OINT LEFTEYE SCH (08:42)
[2018-01-20] MEDS: LIDOCAINE 4%/MENTHOL 1% PATCH TD SCH (08:48)
[2018-01-20 09:07] VITALS: BP 104/62
--- NOTE | 2018-01-20 16:39 | PDDCSUM ---
Discharge Summary Discharge Summary: DISCHARGE SUMMARY FOLLOW-UP ITEMS: Recommend ongoing outpatient counseling for the patient and his daughter regarding the best location of care, locally verses back home with family in [place] DATE OF ADMISSION: 01/18/2018 DATE OF DISCHARGE: 01/20/2018 DISCHARGE DIAGNOSES: 1. Severe sepsis present on admission 2. Streptococcal pneumonia present on admission 3. Acute atelectasis 4. Acute metabolic acidosis 5. History of recurrent venous thromboembolism 6. Chronic coronary artery disease 7. Chronic BPH 8. Chronic left hip deformity 9. Left eye blepharitis CONSULTATIONS: Pulmonary critical care PROCEDURES / IMAGING: Echocardiogram demonstrated no focal wall motion abnormalities, preserved ejection fraction Chest CT demonstrated right upper lobe posterior pneumonia, abdominal CT demonstrated no intra-abdominal pathology CHIEF COMPLAINT: Acute weakness and cough SUBJECTIVE: Patient's production of his cough has increased, his weakness has improved PHYSICAL EXAM ON DISCHARGE: Systolic blood pressure is 90-100, heart rate 60, afebrile overnight, satting 95 % on room air, lungs have some faint inspiratory crackles in the posterior right mid segment with regular heart rhythm, normal bowel sounds, improvement in left eyelid irritation, minimal bilateral lower extremity edema LABS ON DISCHARGE: White blood cell count 7600, hemoglobin 8.9, potassium 3.7, creatinine 0.7, LDL 72, urine Streptococcus positive HOSPITAL COURSE BY PROBLEM: The patient presented with severe sepsis as evidenced by autonomic dysregulation in the setting of infection with end-organ failure notably lactic acidosis, severe hypotension, tachypnea, altered mental status. His sepsis was most likely triggered by streptococcal pneumonia, located in the right upper lobe on chest imaging. His urine streptococcal antigen was positive. He was treated empirically with aggressive IV fluids and IV antibiotics. He was admitted to the step-down unit because his systolic blood pressures were as low as 70, and he required close volume assessment with NICOM, and fluid boluses. His condition stabilized and he is currently safe to be discharged home on oral cefpodoxime, for total of 7 days of antibiotic therapy, given the severity of his pneumonia and illness. The patient's cough was becoming more productive prior to discharge, most likely secondary to loosening of mucous and expectoration. We provided him with mucolytic and antitussive to be used supportively at home as his condition resolves. It should be noted that the patient is having a very difficult time managing at home. He spends most of the day alone because his immediate family have demanding work schedules, and the patient's previous periprosthetic hip fracture renders him unable to ambulate beyond pivoting from bed to chair. He is able to complete activities of daily living, but has a very sedentary quality of life. He has asked his immediate family members to allow him to go back to [place], where he has some other family members who may be able to spend more time with him. On the day of discharge, 1 of his second-degree relatives shared this concern, and it seems like this concern has been shared with the patient's immediate family, who would like to continue caring for him here. That being said, given the patient's documentation status, he is currently not eligible for more robust services, either at home or at assisted or nursing facility. Back in [place], the patient may be more eligible for necessary services, and he may have family members whose schedules permit closer attention. We shared these concerns with the patient's immediate family prior to discharge, and we recommend the [facility] continue this conversation with the patient and his family moving forward. DISCHARGE MEDICATIONS: Please see official discharge medication reconciliation sheet in chart , cefpodoxime 200 mg twice daily for 4 subsequent days, guaifenesin/codeine as needed, Mucinex scheduled for 5 days. DISCHARGE INSTRUCTIONS: Please follow up with the [facility] next week. TIME SPENT: Greater than 30 minutes were spent on direct patient care, as well as discharge planning and preparation.
== END 2018-01-20 16:15 | disposition home or self-care (01) | DRG 871 ==
LOC: F2N 15:22
PROVIDERS: ADMIT Internal Medicine; ATTEND Internal Medicine
DX: A40.3 Sepsis due to Streptococcus pneumoniae (principal); R65.20 Severe sepsis without septic shock; J18.8 Other pneumonia, unspecified organism; J15.4 Pneumonia due to other streptococci; J98.11 Atelectasis; E87.2 Acidosis; E86.9 Volume depletion, unspecified; I25.10 Atherosclerotic heart disease of native coronary artery without angina pectoris; N40.0 Benign prostatic hyperplasia without lower urinary tract symptoms; H01.006 Unspecified blepharitis left eye, unspecified eyelid; M97.02XD Periprosthetic fracture around internal prosthetic left hip joint, subsequent encounter; Z86.718 Personal history of other venous thrombosis and embolism
CPT/HCPCS: 84484-PO; 87449-90; 96365; 97116-GP; 97161-GP; 97166-GO; 97535-GO; J0456; J0696; J1650; J2543; Q9967